=== PATIENT | female | born 1995 | race Caucasian/White ===

== ENCOUNTER 2024-01-04 19:39 | Emergency (ER) | payer MEDICAID ==
[~2024-01-04] VITALS: Ht 182.9 cm; Wt 90.0 kg
[2024-01-04 19:48] VITALS: O2SAT 83
[2024-01-04 19:57] VITALS: BP 123/84; PULSE 99; RESP 16; TEMP 36.89184; O2SAT 83
== END 2024-01-04 22:02 | disposition home or self-care (01) ==
LOC: ER 19:39
DX: R56.9 Unspecified convulsions (principal); F31.9 Bipolar disorder, unspecified; Z90.49 Acquired absence of other specified parts of digestive tract
CPT/HCPCS: 82962; 99282